=== PATIENT | female | born 1945 | race Caucasian/White ===

== ENCOUNTER 2021-08-04 02:35 | Emergency (ER) | payer MEDICARE ==
[2021-08-04 03:13] LABS: BASOPHIL 0.5 % (0-2); EOSINOPHIL 0.9 % (0-7); HCT 44.2 % (37.0-47.0); HGB 14.4 g/dl (12.5-16.0); LYMPHOCYTE 7.2 % (15-48); MCHC 32.6 g/dL (32.0-36.0); MCV 95.1 fL (78.0-100.0); MONOCYTE 9.4 % (0-12); MPV 9.6 fL (6.0-9.5); NEUTROPHIL 81.4 % (41-80); NRBC 0; PLT 209 K/uL (150-400); RBC 4.65 M/uL (4.20-5.40); RDW 13.6 % (11.5-14.0); WBC 8.1 K/uL (4.0-10.5)
[2021-08-04 03:27] LABS: ALBUMIN 3.9 g/dL (3.4-5.0); BILIRUBIN - TOTAL 0.4 mg/dL (0.2-1.0); BUN/CREAT RATIO (CALC) 13.3 RATIO; CREATININE 1.13 mg/dL (0.51-0.95); GLOBULIN (CALCULATION) 3.1 g/dL; POTASSIUM 4.4 mmol/L (3.5-5.1)
[2021-08-04 03:28] LABS: MONOSPOT (MONONUCLEOSIS) NEGATIVE (NEGATIVE)
[2021-08-04 03:34] LABS: PRO-BNP 966 pg/mL (<125)
[2021-08-04 03:57] LABS: CORONAVIRUS 2019 SARS-COV-2 NEGATIVE (NEGATIVE); INFLUENZA A NAA POSITIVE (NEGATIVE)
[2021-08-04 05:30] LABS: BILIRUBIN NEGATIVE (NEGATIVE); BLOOD 1+ Ery/uL (NEGATIVE); CLARITY CLEAR (CLEAR); COLOR YELLOW (YELLOW); GLUCOSE (U) NORMAL (NORMAL); LEUKOCYTES NEGATIVE Leu/uL (NEGATIVE); NITRITE NEGATIVE (NEGATIVE); PROTEIN NEGATIVE (NEGATIVE); SPECIFIC GRAVITY 1.025 (1.001-1.030); UROBILINOGEN 0.2 mg/dL (0.2-1.0)
[2021-08-04] MEDS ORDERED: MEDROL 4MG DOSEP4 MG PO (05:32)
[2021-08-04] MEDS ORDERED: ZPAK PO (05:32)
[2021-08-04] MEDS ORDERED: NEBULIZER UNIT NEB (05:32)
[2021-08-04] MEDS ORDERED: VENTOLIN (2.5 MG/3 M INH (05:32)
[2021-08-04] MEDS ORDERED: TAMIFLU 75MG CA75 MG PO (05:32)
[2021-08-04 05:37] LABS: BACTERIA 2+
== END 2021-08-04 06:10 | disposition home or self-care (01) ==
LOC: FER 02:35
PROVIDERS: Emergency Medicine Emergency Medical Services
DX: J10.1 Influenza due to other identified influenza virus with other respiratory manifestations (principal); J44.9 Chronic obstructive pulmonary disease, unspecified; Z20.822 Contact with and (suspected) exposure to COVID-19; Z88.0 Allergy status to penicillin; Z88.1 Allergy status to other antibiotic agents; Z87.891 Personal history of nicotine dependence
CPT/HCPCS: 36415; 36600; 71045; 80053; 81001; 82803; 83605; 83880; 84145; 84484; 85025; 85379; 86308; 87040; 87070; 87088; 87205; 87880; 93005; 94640; 94664; J2930; U0002